=== PATIENT | male | born 2000 | race Caucasian/White ===

== ENCOUNTER 2022-09-30 21:05 | Emergency (ER) | payer OTHER ==
[~2022-09-30] VITALS: Ht 177.8 cm; Wt 97.5 kg
== END 2022-10-01 02:04 | disposition home or self-care (01) ==
LOC: ED 21:05
DX: U07.1 COVID-19 (principal); J02.9 Acute pharyngitis, unspecified; R05.9 Cough, unspecified; Z88.1 Allergy status to other antibiotic agents